=== PATIENT | female | born 1985 | race Caucasian/White ===

== ENCOUNTER 2017-12-07 13:15 | Emergency (ER) | payer OTHER ==
[2017-12-07] MEDS ORDERED: Albuterol/Ipratropium 3.0-0.5 MG/3 ML Neb Soln NEB ONE (13:35)
--- NOTE | 2017-12-07 13:41 | EDM.PDOC ---
ED HPI GENERAL MEDICAL PROBLEM - General Chief Complaint: Respiratory Problem Stated Complaint: TROUBLE BREATHING Time Seen by Provider: 12/07/17 13:36 Source of Information: Reports: Patient History Limitations: Reports: No Limitations - History of Present Illness INITIAL COMMENTS - FREE TEXT/NARRATIVE: 31-year-old female attends the ED with a subjective sensation of dyspnea. She states she feels like she cannot get a full deep breath. She denies coughing or sputum production. Denies being recently ill. She is on oral concept of control. She did travel by airplane to [facility] getting november and return 5 days later. She doesn't notice any swelling in her lower extremities or pain in her calves. No history of DVT. She has no pain on inspiration. She perhaps feels slightly dizzy at times when she is standing. Overall ,however she feels she is eating and drinking normally. Denies any possibility of . Onset: Gradual Onset Date: 12/06/17 Duration: Day(s): Location: Reports: Chest (Just as a feeling of dyspnea and inability get a deep breath.) Quality: Reports: Other Severity: Moderate (Dyspnea) Improves with: Reports: None Worsens with: Reports: None Context: Reports: Other (Not any worse with exertion.). 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 (see below) (None.) - Related Data Allergies Allergy/AdvReac Type Severity Reaction Status Date / Time ibuprofen Allergy Hives Verified 12/07/17 13:20 naproxen [From Aleve] Allergy Anaphylactic Verified 12/07/17 13:20 Shock Home Meds: Home Meds ALPRAZolam [Alprazolam ODT] 0.5 mg PO Q8H PRN #8 tab.dis 12/07/17 [Rx] Norethindrone AC-Eth Estradiol [Junel 1.5 mg-30 Mcg Tablet] 1 tab PO DAILY 12/07 [History] Past Medical History - Past Health History Medical/Surgical History: Denies Medical/Surgical History Social & Family History - Living Situation & Occupation Living situation: Reports: Single Occupation: Employed ED ROS GENERAL - Review of Systems Review Of Systems: See Below Constitutional: Denies: Fever, Chills, Malaise, Weakness, Fatigue, Decreased Appetite, Weight Loss HEENT: Reports: No Symptoms Respiratory: Reports: Shortness of Breath. Denies: Wheezing, Pleuritic Chest Pain, Cough, Sputum Cardiovascular: Reports: Lightheadedness. Denies: Chest Pain, Blood Pressure Problem, Claudication, Dyspnea on Exertion (Occasionally.), Edema, Orthopnea, Palpitations, PND, Syncope, Other Endocrine: Reports: No Symptoms GI/Abdominal: Reports: No Symptoms : Reports: No Symptoms Musculoskeletal: Reports: No Symptoms Skin: Reports: No Symptoms Neurological: Reports: No Symptoms Psychiatric: Reports: No Symptoms Hematologic/Lymphatic: Reports: No Symptoms Immunologic: Reports: No Symptoms ED EXAM, GENERAL - Physical Exam Exam: See Below Exam Limited By: No Limitations General Appearance: Alert, WD/WN, No Apparent Distress, Other (Vital signs are normal with respiratory of 18/m and pulse ox 100% on room air.) Eye Exam: Bilateral Eye: Normal Inspection Head: Atraumatic, Normocephalic Neck: Normal Inspection, Supple, Non-Tender, Full Range of Motion. No: Carotid Bruit, Lymphadenopathy (L), Lymphadenopathy (R) Respiratory/Chest: No Respiratory Distress, Lungs Clear, Normal Breath Sounds, No Accessory Muscle Use, Chest Non-Tender Cardiovascular: Normal Peripheral Pulses, Regular Rate, Rhythm, No Edema, No Gallop, No Murmur, No Rub Peripheral Pulses: 3+: Posterior Tibial (L), Posterior Tibial (R), Dorsalis Pedis (L), Dorsalis Pedis (R) GI/Abdominal: Normal Bowel Sounds, Non-Tender, No Organomegaly, No Distention, No Abnormal Bruit, No Mass Extremities: Normal Inspection, Normal Range of Motion, Non-Tender, No Pedal Edema Neurological: Alert, Oriented, CN II-XII Intact, Normal Cognition, Normal Gait Psychiatric: Normal Affect, Normal Mood Skin Exam: Warm, Dry, Intact, Normal Color, No Rash EKG INTERPRETATION EKG Date: 12/07/17 Time: 13:40 Rhythm: NSR Rate (Beats/Min): 81 [place]: RAD-Right [place] Deviation P-Wave: Present (Borderline right axis deviation at [place] at 92.) QRS: Normal ST-T: Normal QT: Normal EKG Interpretation Comments: Essentially normal ECG. Course - Vital Signs Last Recorded V/S: Last Vital Signs Temp 36.9 C 12/07/17 13:21 Pulse 89 04/24/18 13:21 Resp 18 12/07/17 13:21 BP 123/77 12/07/17 13:21 Pulse Ox 100 12/07/17 13:45 - Orders/Labs/Meds Orders: Active Orders 24 hr Category Date Time Status EKG Documentation Completion [RC] STAT Care 12/07/17 13:36 Active RT Aerosol Therapy [RC] ASDIRECTED Care 12/07/17 13:35 Active Chest 1V Frontal [CR] Stat Exams 12/07/17 14:15 Taken Labs: Laboratory Tests 12/07/17 12/07/17 12/07/17 Range/Units 13:55 13:55 13:55 WBC 6.61 (3.98-10.04) K/mm3 RBC 5.15 (3.98-5.22) M/mm3 Hgb 14.3 (11.2-15.7) gm/L Hct 43.0 (34.1-44.9) % MCV 83.5 (79.4-94.8) fl MCH 27.8 (25.6-32.2) pg MCHC 33.3 (32.2-35.5) g/dl RDW Std Deviation 38.2 (36.4-46.3) fL Plt Count 325 (182-369) K/mm3 MPV 9.9 (9.4-12.3) fl Neutrophils % (Manual) 67 H (40-60) % Band Neutrophils % 2 (0-10) % Lymphocytes % (Manual) 29 (20-40) % Atypical Lymphs % 0 % Monocytes % (Manual) 2 (2-10) % Eosinophils % (Manual) 0 L (0.7-5.8) % Basophils % (Manual) 0 L (0.1-1.2) Platelet Estimate Adequate RBC Morph Comment Normal D-Dimer, Quantitative < 0.19 L (0.19-0.50) mg/L Sodium 138 (136-145) mEq/L Potassium 3.6 (3.5-5.1) mEq/L Chloride 103 (98-107) mEq/L Carbon Dioxide 23 (21-32) mEq/L Anion Gap 15.6 H (5-15) BUN 9 (7-18) mg/dL Creatinine 0.8 (0.55-1.02) mg/dL Est Cr Clr Drug Dosing 85.06 mL/min Estimated GFR (MDRD) > 60 (>60) mL/min BUN/Creatinine Ratio 11.3 L (14-18) Glucose 89 (74-106) mg/dL Calcium 9.0 (8.5-10.1) mg/dL Total Bilirubin 0.4 (0.2-1.0) mg/dL AST 18 (15-37) U/L ALT 30 (14-59) U/L Alkaline Phosphatase 59 (46-116) U/L Total Protein 7.5 (6.4-8.2) g/dl Albumin 3.8 (3.4-5.0) g/dl Globulin 3.7 gm/dL Albumin/Globulin Ratio 1.0 (1-2) TSH 3rd Generation 2.314 (0.358-3.74) uIU/mL Meds: Medications Discontinued Medications Generic Name Dose Route Start Last Admin Trade Name Freq PRN Reason Stop Dose Admin Albuterol/Ipratropium 3 ml 12/07/17 13:35 12/07/17 13:44 Duoneb 3.0-0.5 Mg/3 Ml NEB 12/07/17 13:36 3 ml ONETIME ONE Administration - Radiology Interpretation Free Text/Narrative:: 31-year-old female presents the ED with primary complaint of dyspnea. She has a feeling of inability get a full deep breath. She admits that she has had some anxiety issues in the past but doesn't feel anxious at present. Denies cough sputum production. Is no fever or chills. She has no history of asthma or wheezing. States still a bit dizzy when she was standing today I felt a little lightheaded. The only risk factor for DVT would be recent travel to [facility] by airplane beginning of November. She returned 5 days later. She is on oral concept of control. Currently her vital signs are all normal with a sporadic crit of 18 and pulse oximetry 100% on room air. Plan routine labs including a d-dimer and a TSH. One view chest x-ray ECG to be done. I will try her on a DuoNeb nebulizer treatment to see if this helps relieve any of her dyspnea. - Re-Assessments/Exams Free Text/Narrative Re-Assessment/Exam: 12/07/17 13:46 ECG is essentially normal with no signs of ischemia or arrhythmia. 12/07/17 14:26 one view portable chest x-ray is within normal limits. Off tissue densities are present in both lower lung bet[place]ourt likely due to overlying breast tissue. Cardiac silhouette is normal. She reports that the DuoNeb really didn't help much in terms of improving her feeling of getting a full deep breath. Did perhaps make a little bit more dizzy or lightheaded feeling. Still awaiting lab work. 12/07/17 15:02 Labs are back. Total white count is 6.61 with a 67% neutrophils and 2% band cells. Hemoglobin is 14.3 with hematocrit of 43.0. D-dimer is less than 0.19. Sodium is 1:30 with a potassium of 3.6. Portable 03 with a bicarbonate of 23. Anion gap is mildly elevated at 15.6.. Glucose is 89. The remainder of the chemistry is normal including a TSH of 2.3. 12/07/17 15:06 stress the findings with edition lady and she has some pretty good insight that she may be suffering a little bit of anxiety. It is happened to her in the past. She has taken Ativan 0.5 mg last evening but didn't feel that it to relieve the anxiety. Her sleep a bit better. Patient reassured that I can find no problems with her heart lungs her thyroid today. I wrote will write a prescription for alprazolam 0.5 mg to be taken every 8 hours when necessary for anxiety symptoms as needed. O2 sats remained on her percent through her entire stay in the ED. There were no arrhythmias. My assessment is likely she is suffering from mild generalized anxiety disorder. Departure - Departure Time of Disposition: 15:07 Disposition: Home, Self-Care 01 Condition: Fair Clinical Impression: Dyspnea, unspecified Qualifiers: Dyspnea type: unspecified Qualified Code(s): R06.00 - Dyspnea, unspecified - Discharge Information Prescriptions: ALPRAZolam [Alprazolam ODT] 0.5 mg PO Q8H PRN #8 tab.dis PRN Reason: Relief of anxiety Instructions: Shortness of Breath, Adult, [id number] Referrals: Anne-Marie Adorno, [employer] [Primary Care Provider] - Forms: ED Department Discharge, ED Return to Work/School Form Additional Instructions: Evaluation the emergency room today in regards to feeling of not being able to take a full deep breath. Vital signs are prone to be normal. Lungs sound clear heart sounds are normal ECG her heart tracing was normal as well. One view chest x-ray was obtained and it was also within normal limits. Abscess were carried out and they do not reveal any signs of heart related illness. The d- dimer was less than 0.19 meaning that there is no evidence of any blood clots within the lungs or other body tissues. Function was also normal at TSH of 2.36. Therefore I cannot find any and signs of an infection or other reason for shortness of breath feelings. As you discussed sometimes this occurs when you' re under extra stress or feeling anxious although it never usually last quite this long. At this time I would suggest not going back to work today and doing something relaxing this afternoon. He did write a prescription for Xanax 0.5 mg to be taken every 8 hours as needed in an effort to relieve anxiety and dyspnea as needed. If symptoms persist then I would suggest follow-up with your personal care provider. - My Orders Last 24 Hours: My Active Orders 12/07/17 13:35 RT Aerosol Therapy [RC] ASDIRECTED 12/07/17 13:36 EKG Documentation Completion [RC] STAT 12/07/17 14:15 Chest 1V Frontal [CR] Stat - Assessment/Plan Last 24 Hours: My Active Orders 12/07/17 13:35 RT Aerosol Therapy [RC] ASDIRECTED 12/07/17 13:36 EKG Documentation Completion [RC] STAT 12/07/17 14:15 Chest 1V Frontal [CR] Stat
--- NOTE | 2017-12-07 15:33 | CR ---
Chest: Frontal view of the chest was obtained. Comparison: No prior study. Heart size and mediastinum are normal. Lungs are clear. Minimal scoliosis is noted within the spine. Impression: 1. Nothing acute is seen on frontal chest x-ray. Diagnostic code #2
== END 2017-12-07 15:25 | disposition home or self-care (01) ==
LOC: JD.ED 13:15
DX: R06.00 Dyspnea, unspecified (principal); Z88.6 Allergy status to analgesic agent
CPT/HCPCS: 36415; 71045; 71045-26; 80053; 84443; 85025; 85379; 93005; 93010; 94640; 99284-25; 99285-25